=== PATIENT | male | born 1990 | race Caucasian/White ===

== ENCOUNTER 2016-11-20 19:23 | Emergency (ER) | payer BC, OTHER ==
[~2016-11-20] VITALS: Ht 182.9 cm; Wt 97.4 kg
[~2016-11-20 19:23] MED LIST: ESCI10TA17
[2016-11-20 19:25] VITALS: TEMP 36.9; Ht 182.9 cm; Wt 97.4 kg
[2016-11-20] MEDS ORDERED: MELA3TAB12 PO (20:08)
[2016-11-20] MEDS ORDERED: ACET-1256 PO (20:08)
[2016-11-20] MEDS ORDERED: ESCI1TAB10 PO (20:08)
[2016-11-20 20:11] LABS: BENZODIAZEPINE, URINE NEG (NEG); COCAINE,URINE NEG (NEG); PHENCYCLIDINE, URINE NEG (NEG)
[2016-11-20 20:16] LABS: MEAN CELL VOLUME 84.5 fL (80-100); MEAN CORPUSCULAR HEMOGLOBIN 31.2 pg (25-34); MEAN CORPUSCULAR HGB CONC 36.9 g/dl (32-36); MEAN PLATELET VOLUME 10.1 fL (7.4-10.4); PLATELET COUNT 262 K/uL (130-400); RED BLOOD COUNT 4.97 M/uL (4.7-6.1); WHITE BLOOD COUNT 9.08 K/uL (4.8-10.8)
--- NOTE | 2016-11-20 20:31 | DIAGNOSTIC IMAGING REPORT ---
CT OF THE HEAD WITHOUT CONTRAST CLINICAL HISTORY: Head injury. Anxiety. Depression. COMPARISON STUDY: Head CT August 01, 2008. CT DOSE: 537.48 mGy.cm TECHNIQUE: Helical axial images of the head were obtained without IV contrast. Automated exposure control was utilized for the study. FINDINGS: No acute intracranial hemorrhage, midline shift or mass effect is present. Brain volume is normal. Ventricular system is normal. The basilar cisterns are patent. No extra-axial collections are present. Campos-white differentiation is maintained. There are no findings to suggest acute dural sinus thrombosis or acute territorial infarct. There is extensive mucosal thickening of the right ethmoid sinuses. There are no calvarial fracture. Mastoid air cells are clear. IMPRESSION: 1. No acute intracranial findings. 2. Extensive right ethmoid sinus mucosal thickening. 3. No calvarial fracture. Electronically signed by: Capo Craig M.D. 11/20/2016 8:29 PM Dictated Date/Time: 11/20/2016 8:26 PM
[2016-11-20 20:38] LABS: ACETAMINOPHEN 2 ug/ml (10-30); BUN/CREATININE RATIO 15.3 (10-20); CREATININE 0.72 mg/dl (0.60-1.40); POTASSIUM 3.2 mmol/L (3.5-5.1)
[2016-11-20 20:49] LABS: THYROID STIMULATING HORMONE 2.96 uIu/ml (0.300-4.500)
[2016-11-20] MEDS ORDERED: ATIVAN 1MG HOMEPACK PO ONE (22:00)
[2016-11-20 22:16] VITALS: BP 130/77; PULSE 88; O2SAT 97
--- NOTE | 2016-11-21 00:52 | EMERGENCY ROOM VISIT NOTE ---
History Report prepared by Denisse: Davida Richard Under the Supervision of: Dr. Joseph Fajardo M.D. First contact with patient: 19:40 Chief Complaint: MENTAL HEALTH EVALUATION Stated Complaint: ANXIETY, DEPRESSION, SUICIDAL IDEATIONS History of Present Illness The patient is a 26 year old male who presents to the Emergency Room with complaints of persistent depression that has worsened over the last several hours. Per the patient's father, the patient has a history of depression and states that the patient takes 20 mg of Lexapro daily. He states that for the past three years, the patient has been involved in a relationship. The patient' s father states that the patient has been trying to make the relationship work, but the significant other does not want to. He states that the patient has been with his significant other since she gave , and has been a father to the child. The patient's father states that over the past two weeks the significant other has been saying it isn't going to work, but states that two hours ago the relationship has officially ended. The patient's father states that the patient has been experiencing stress, hyperventilation, and difficulty communicating effectively. The patient states that he wishes he could just go somewhere and start over again. He states that he has had suicidal ideations in the past, but has never attempted suicide in the past. The patient denies any homicidal ideation and states that he just wants to get away from everything. He states that he has a counselor that he has followed with for the past several years. The patient's father states that the patient hit his head on a door very hard this evening and states that his friend had to restrain the patient. The patient notes a headache today and states that he took Tylenol for his headache. He denies any neck pain. The patient's father denies the patient trying to overdose this evening and denies the patient having access to the firearms in their house. 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 The patient's father notes a strong family history of depression. The patient denies any suicidal ideation. Source of History: patient Onset: last several hours Position: other (global) Quality: other (depression) Timing: worsening, other (persistent) Associated Symptoms: + headache, No neck pain Note: Associated Symptoms: suicidal ideations, emotional issues, hyperventilation, difficulty communicating effectively. Review of Systems See HPI for pertinent positives & negatives. A total of 10 systems reviewed and were otherwise negative. Past Medical & Surgical Medical Problems: (1) Depression Family History Depression Social History Smoking Status: Never Smoker Alcohol Use: occasionally Marital Status: single Occupation Status: employed Current/Historical Medications Scheduled Acetaminophen (Tylenol), 1,000 MG PO PRN UD Escitalopram Oxalate (Lexapro), 20 MG PO HS Melatonin-Pyridoxine (Melatonin), 5 MG PO HS Allergies Coded Allergies: Codeine (Verified Allergy, Severe, HIVES, 11/20/16) Latex (Verified Allergy, Severe, HIVES, 11/20/16) Physical Exam Vital Signs Date Time Temp Pulse Resp B/P Pulse Ox O2 Delivery O2 Flow Rate FiO2 11/20/16 22:16 88 18 130/77 97 11/20/16 21:52 88 18 130/77 97 Room Air 11/20/16 19:25 36.9 93 22 136/92 98 Room Air Physical Exam Constitutional: Vital signs reviewed. Eyes: Pupils are equal round reactive to light. Conjunctiva are noninjected. ENT: Pharynx is clear without erythema or exudate. Mucous membranes are moist. Neck supple without meningeal signs. No midline tenderness to the cervical spine. Respiratory: Clear to auscultation bilaterally. Breath sounds are equal bilaterally. Cardiovascular: Regular rate and rhythm. No rubs or gallops. GI: Soft, nondistended and nontender. Bowel sounds are present. Musculoskeletal: No peripheral edema. No lower extremity tenderness. Integumentary: No cyanosis. Neurological: The patient is awake and alert. Cranial nerves II-XII are intact. Motor is 5 out of 5 all extremities. Sensation is intact to light touch all extremities. Normal speech. No pronator drift. Psychiatric: Depressed affect. Anxious. Medical Decision & Procedures ER Provider Diagnostic Interpretation: CT results as stated below per my review and radiologist interpretation. CT OF THE HEAD WITHOUT CONTRAST CLINICAL HISTORY: Head injury. Anxiety. Depression. COMPARISON STUDY: Head CT August 01, 2008. CT DOSE: 537.48 mGy.cm TECHNIQUE: Helical axial images of the head were obtained without IV contrast. Automated exposure control was utilized for the study. FINDINGS: No acute intracranial hemorrhage, midline shift or mass effect is present. Brain volume is normal. Ventricular system is normal. The basilar cisterns are patent. No extra-axial collections are present. Campos-white differentiation is maintained. There are no findings to suggest acute dural sinus thrombosis or acute territorial infarct. There is extensive mucosal thickening of the right ethmoid sinuses. There are no calvarial fracture. Mastoid air cells are clear. IMPRESSION: 1. No acute intracranial findings. 2. Extensive right ethmoid sinus mucosal thickening. 3. No calvarial fracture. Electronically signed by: Capo Craig M.D. 11/20/2016 8:29 PM Dictated Date/Time: 11/20/2016 8:26 PM Laboratory Results 11/20/16 20:05 11/20/16 20:05 Test 11/20/16 19:36 11/20/16 20:05 Urine Opiates Screen NEG (NEG) Urine Methadone, Qualitative NEG (NEG) Urine Barbiturates NEG (NEG) Urine Phencyclidine (PCP) Level NEG (NEG) Ur Amphetamine/Methamphetamine NEG (NEG) MDMA (Ecstasy) Screen NEG (NEG) Urine Benzodiazepines Screen NEG (NEG) Urine Cocaine Metabolite NEG (NEG) Urine Marijuana (THC) NEG (NEG) Red Blood Count 4.97 M/uL (4.7-6.1) Mean Corpuscular Volume 84.5 fL (80-100) Mean Corpuscular Hemoglobin 31.2 pg (25-34) Mean Corpuscular Hemoglobin Concent 36.9 g/dl (32-36) RDW Standard Deviation 37.6 fL (36.4-46.3) RDW Coefficient of Variation 12.3 % (11.5-14.5) Mean Platelet Volume 10.1 fL (7.4-10.4) Anion Gap 10.0 mmol/L (3-11) Est Creatinine Clear Calc Drug Dose 188.1 ml/min Estimated GFR () 149.2 Estimated GFR (Non- 128.7 BUN/Creatinine Ratio 15.3 (10-20) Calcium Level 9.0 mg/dl (8.5-10.1) Total Bilirubin 0.4 mg/dl (0.2-1) Direct Bilirubin 0.1 mg/dl (0-0.2) Aspartate Amino Transf (AST/SGOT) 19 U/L (15-37) Alanine Aminotransferase (ALT/SGPT) 25 U/L (12-78) Alkaline Phosphatase 85 U/L (45-117) Total Protein 7.0 gm/dl (6.4-8.2) Albumin 3.8 gm/dl (3.4-5.0) Thyroid Stimulating Hormone (TSH) 2.960 uIu/ml (0.300-4.500) Salicylates Level < 1.7 mg/dl (2.8-20) Acetaminophen Level 2 ug/ml (10-30) Ethyl Alcohol mg/dL < 3.0 mg/dl (0-3) Laboratory results as reviewed by me. Medications Administered Medications (Trade) Dose Ordered Sig/Jr Route Start Time Stop Time Status Last Admin Dose Admin Lorazepam (Ativan 1MG Home Pack) 1 homepack UD ONCE PO 11/20/16 22:00 11/20/16 22:01 DC 11/20/16 22:00 1 HOMEPACK ED Course 1940: The patient was evaluated in room A10. A complete history and physical exam was performed. 2148: I reevaluated the patient and he denies having any current sinus symptoms. He states that he was recently treated with antibiotics for a sinus infection. The patient states that he feels better and wants to go home. His father agrees that the patient is okay to go home and has no concern for his safety. The father states that he will conceal his firearms. The patient has an appointment with his therapist tomorrow. The psych porter sample case saw the patient and states that he had no criteria for a 302 commitment. 2199: Ordered Lorazepam 1 homepack PO. Medical Decision This is a 26-year-old male presents for mental health evaluation and head injury. I did perform a limited focused review of portions of the patient's old chart on the electronic medical record. The patient has had no recent pertinent visits to this hospital. I did evaluate the patient as noted above. The patient recently broke up with a significant other. He has been with this woman fourth approximate 3 years and has helped raise her child who is not his. Tonight he found out that she was breaking up with him and became extremely stressed and hit his head against a wall. He was brought in by his father for mental health evaluation. He does deny suicidal ideation and states that he wants to start over again but feels hopeless. I did order and review the patient's blood work as noted in the electronic medical record. I did order a CT of the head. I did review the images myself as well as the radiology report as described above. He has no acute intracranial abnormalities. There is some findings regarding his sinus but the patient says that he was recently on antibiotics and currently has no sinus symptoms other than a runny nose. He denies any facial pain or fever. I did have the mental health body builder talk with him. She stated that the patient did not wish to be admitted as an inpatient. There are no grounds for a 302. The father is comfortable taking him home and is not concerned that he will hurt himself. The patient denies any suicidal ideation. He states that he has a therapist and will see him tomorrow. The patient was therefore discharged with his father in good condition. He was he was given an Ativan home pack. Impression Primary Impression: Mood disorder Additional Impressions: Anxiety Head injury Scribe Attestation The scribe's documentation has been prepared under my direct and personally reviewed by me in its entirety. I confirm that the note above accurately reflects all work, treatment, procedures, and medical decision making performed by me. Departure Information Dispostion Home / Self-Care Referrals No Doctor, Assigned (PCP) Forms HOME CARE DOCUMENTATION FORM, IMPORTANT VISIT INFORMATION Patient Instructions ED Depression, ED Head Injury Closed, Lorazepam Oral tablet, My [facility] Additional Instructions You have been examined and treated today on an emergency basis only. This is not a substitute for, or an effort to provide, complete comprehensive medical care. It is impossible to recognize and treat all injuries or illnesses in a single emergency department visit. It is therefore important that you follow up closely with yourdocotr and your therapist per your appointment. Return for worsening symptoms or if you develop vomiting, numbness or weakness in the arms or legs, or any other concerning symptoms. Problem Qualifiers
[2016-12-20] MEDS ORDERED: FLUO20CA35 PO (07:42)
[2016-12-20] MEDS ORDERED: ZNTT/150 PO (07:42)
[2016-12-20] MEDS ORDERED: MELATAB2 PO (07:42)
[2016-12-20] MEDS ORDERED: PRD10 PO (07:42)
== END 2016-11-20 22:17 | disposition home or self-care (01) ==
LOC: C.EDB 19:24 → C.EDA 22:17
DX: F39 Unspecified mood [affective] disorder (principal); F41.9 Anxiety disorder, unspecified; S09.90XA Unspecified injury of head, initial encounter; F32.9 Major depressive disorder, single episode, unspecified; W22.8XXA Striking against or struck by other objects, initial encounter

== ENCOUNTER 2016-12-03 08:52 | Emergency (ER) | payer OTHER ==
[~2016-12-03] VITALS: Ht 182.9 cm; Wt 91.0 kg
[~2016-12-03 08:52] MED LIST changes: +ACET-1256 PO; -ESCI10TA17; +ESCI1TAB10 PO; +MELA3TAB12 PO
[2016-12-03 08:54] VITALS: TEMP 36.6; Ht 182.9 cm; Wt 91.0 kg
[2016-12-03] MEDS ORDERED: ONDANSETRON 8 MG/54 ML D5W IV STA (09:01)
[2016-12-03] MEDS ORDERED: KETOROLAC TROMETHAMINE 30 MG/ML VIAL IV STA (09:01)
[2016-12-03] MEDS ORDERED: SODIUM CHLORIDE 0.9% 1000ML 1,000 ML IV STA (09:01)
[2016-12-03] MEDS ORDERED: MoRPHine SULFATE 4 MG/ML 1 ML CARP\\VIAL IV STA (09:01)
[2016-12-03 09:12] LABS: BASO ABS # 0.07 K/uL (0-0.2); COMPLETE YES; EOS % 5.4 %; HEMATOCRIT 44.9 % (42-52); IG% 0.1 %; LYMPH % 35.7 %; LYMPH ABS # 2.45 K/uL (1.2-3.4); MEAN CELL VOLUME 85.4 fL (80-100); MEAN CORPUSCULAR HEMOGLOBIN 30.8 pg (25-34); MEAN CORPUSCULAR HGB CONC 36.1 g/dl (32-36); MEAN PLATELET VOLUME 10.1 fL (7.4-10.4); MONO % 8.7 %; NEUT % 49.1 %; PLATELET COUNT 253 K/uL (130-400); RED BLOOD COUNT 5.26 M/uL (4.7-6.1); WHITE BLOOD COUNT 6.86 K/uL (4.8-10.8)
[2016-12-03 09:30] LABS: BUN/CREATININE RATIO 14.1 (10-20); CALCIUM 9.2 mg/dl (8.5-10.1); CREATININE 0.9 mg/dl (0.60-1.40)
--- NOTE | 2016-12-03 09:30 | DIAGNOSTIC IMAGING REPORT ---
ABDOMEN AND PELVIS CT WITHOUT CONTRAST CT DOSE: 950.42 mGy.cm HISTORY: Flank pain L flank/L abd pain TECHNIQUE: Multiaxial CT images of the abdomen and pelvis were performed without contrast. COMPARISON STUDY: None. FINDINGS: Lung bases are clear. Liver spleen and pancreas appear unremarkable. Gallbladder is negative for distention. Right kidney demonstrates a 5 mm nonobstructing calcification at its mid aspect. There is no evidence for right-sided obstructing urinary tract calculus. There is mild left urinary tract hydroureteronephrosis. The secondary to a partially obstructing calculus distal left ureter measuring 2.5 mm. Bladder is midline. There are no contained calcifications. Bowel pattern throughout is nonobstructive. The appendix is considered unremarkable. Bowel pattern again is nonobstructive. IMPRESSION: 1. 2.5 mm partially obstructing calculus distal left ureter. 2. Mild left hydroureteronephrosis. 3. Nonobstructing right renal calcification. Electronically signed by: Oswaldo Brennan M.D. 12/03/2016 9:29 AM Dictated Date/Time: 12/03/2016 9:26 AM
[2016-12-03] MEDS ORDERED: LORA-741 PO (09:31)
[2016-12-03] MEDS ORDERED: FLUO10CA48 PO (09:31)
[2016-12-03 09:33] LABS: ALB/GLOB RATIO 1.1 (0.9-2)
[2016-12-03] MEDS: MoRPHine SULFATE 4 MG/ML 1 ML CARP\\VIAL IV PRN ×2 (09:38→10:05)
[2016-12-03] MEDS ORDERED: OXYC1TAB3 PO (09:49)
[2016-12-03] MEDS ORDERED: ONDA4TAB10 SL (09:49)
[2016-12-03] MEDS ORDERED: HYDROmorphone INJ 0.5 MG/0.5 ML SYR IV STA (10:17)
--- NOTE | 2016-12-03 10:53 | EMERGENCY ROOM VISIT NOTE ---
History First contact with patient: 08:57 Chief Complaint: KIDNEY STONE Stated Complaint: KIDNEY PAIN History of Present Illness The patient is a 26 year old male who presents to the Emergency Room with complaints of severe left flank and abdominal pain. The patient has also had nausea and multiple episodes of vomiting. His pain started around 8 AM this morning. He felt perfectly fine last night. He denies any recent constipation , diarrhea or urinary symptoms. He denies any history of GI conditions or kidney stones. He denies any recent infections, fevers or chills. The patient reports that the pain is sharp and constant. He denies any alleviating or aggravating factors for his pain. He currently rates his discomfort a 10 out of 10. Patient denies any chest pain or shortness of breath. Review of Systems HEENT: Denies dizziness, visual problems, hearing loss, tinnitus. Denies difficulty swallowing or oral lesions. PULMONARY: Denies cough, shortness of breath, sputum production or hemoptysis. CARDIOVASCULAR: Denies chest pain, palpitations, dyspnea on exertion, orthopnea or peripheral edema. GASTROINTESTINAL: Denies diarrhea or constipation, last the history of present illness. GENITOURINARY: Denies dysuria, frequency, urgency or nocturia. NEUROLOGIC: Denies history of epilepsy, CVA, TIA or chronic headaches. MUSCULOSKELETAL: Denies history of joint tenderness/swelling. SKIN: Denies rashes or lesions. PSYCHIATRIC: History of depression. ENDOCRINE: Denies history of diabetes or thyroid disorders. Past Medical/Surgical History Medical Problems: (1) Depression Family History Depression Social History Smoking Status: Never Smoker Alcohol Use: occasionally Marital Status: single Occupation Status: employed Current/Historical Medications Scheduled Fluoxetine (Prozac), Unknown Dose PO HS Ondasetron Odt (Zofran Odt), 4 MG SL Q6H Scheduled PRN Lorazepam (Ativan), Unknown Dose PO Q6H PRN for Anxiety Oxycodone Ir (Roxicodone Ir), 1-2 TAB PO Q4H PRN for Pain Allergies Coded Allergies: Codeine (Verified Allergy, Severe, HIVES, 12/03/16) Latex (Verified Allergy, Severe, HIVES, 12/03/16) Physical Exam Vital Signs Date Time Temp Pulse Resp B/P Pulse Ox O2 Delivery O2 Flow Rate FiO2 12/03/16 09:38 71 18 135/98 100 Room Air 12/03/16 08:54 36.6 89 20 146/108 99 Room Air Physical Exam CONSTITUTIONAL: Healthy and well nourished. Alert and oriented X 3 with positive affect. Appears in moderately severe discomfort from pain. HEENT: Normocephalic, atraumatic. Pupils equal, round and reactive. Ears and nares are clear. No scleral icterus or conjunctival injection/pallor. NECK: Full active range of motion without discomfort. RESPIRATORY: Clear to auscultation bilaterally with no wheezing, crackles, rhonchi or stridor. CARDIOVASCULAR: Regular rate and rhythm with no murmurs, rubs or gallops. GASTROINTESTINAL: Bowel sounds present in all quadrants. Patient has generalized left abdominal tenderness to palpation without rigidity, guarding or rebound. Negative CVA tenderness. MUSCULOSKELETAL: Full range of motion of all joints without discomfort. INTEGUMENTARY: No rash or other significant dermatologic conditions noted. HEMATOLOGIC: No ecchymosis or petechiae noted. NEUROLOGIC: No focal neurologic deficits noted. Medical Decision & Procedures ER Provider Diagnostic Interpretation: Noncontrast CT of the abdomen and pelvis shows a 2.5 mm distal left ureteral calculus with mild hydronephrosis. Radiologist report is as follows: ABDOMEN AND PELVIS CT WITHOUT CONTRAST CT DOSE: 950.42 mGy.cm HISTORY: Flank pain L flank/L abd pain TECHNIQUE: Multiaxial CT images of the abdomen and pelvis were performed without contrast. COMPARISON STUDY: None. FINDINGS: Lung bases are clear. Liver spleen and pancreas appear unremarkable. Gallbladder is negative for distention. Right kidney demonstrates a 5 mm nonobstructing calcification at its mid aspect. There is no evidence for right-sided obstructing urinary tract calculus. There is mild left urinary tract hydroureteronephrosis. The secondary to a partially obstructing calculus distal left ureter measuring 2.5 mm. Bladder is midline. There are no contained calcifications. Bowel pattern throughout is nonobstructive. The appendix is considered unremarkable. Bowel pattern again is nonobstructive. IMPRESSION: 1. 2.5 mm partially obstructing calculus distal left ureter. 2. Mild left hydroureteronephrosis. 3. Nonobstructing right renal calcification. Laboratory Results 12/03/16 09:02 Red Blood Count 5.26, Mean Corpuscular Volume 85.4, Mean Corpuscular Hemoglobin 30.8, Mean Corpuscular Hemoglobin Concent 36.1, Mean Platelet Volume 10.1, Neutrophils (%) (Auto) 49.1, Lymphocytes (%) (Auto) 35.7, Monocytes (%) (Auto) 8.7, Eosinophils (%) (Auto) 5.4, Basophils (%) (Auto) 1.0, Neutrophils # (Auto) 3.36, Lymphocytes # (Auto) 2.45, Monocytes # (Auto) 0.60, Eosinophils # (Auto) 0.37, Basophils # (Auto) 0.07 12/03/16 09:02 Test 12/03/16 09:02 White Blood Count 6.86 K/uL (4.8-10.8) Red Blood Count 5.26 M/uL (4.7-6.1) Hemoglobin 16.2 g/dL (14.0-18.0) Hematocrit 44.9 % (42-52) Mean Corpuscular Volume 85.4 fL (80-100) Mean Corpuscular Hemoglobin 30.8 pg (25-34) Mean Corpuscular Hemoglobin Concent 36.1 g/dl (32-36) Platelet Count 253 K/uL (130-400) Mean Platelet Volume 10.1 fL (7.4-10.4) Neutrophils (%) (Auto) 49.1 % Lymphocytes (%) (Auto) 35.7 % Monocytes (%) (Auto) 8.7 % Eosinophils (%) (Auto) 5.4 % Basophils (%) (Auto) 1.0 % Neutrophils # (Auto) 3.36 K/uL (1.4-6.5) Lymphocytes # (Auto) 2.45 K/uL (1.2-3.4) Monocytes # (Auto) 0.60 K/uL (0.11-0.59) Eosinophils # (Auto) 0.37 K/uL (0-0.5) Basophils # (Auto) 0.07 K/uL (0-0.2) RDW Standard Deviation 38.1 fL (36.4-46.3) RDW Coefficient of Variation 12.3 % (11.5-14.5) Immature Granulocyte % (Auto) 0.1 % Immature Granulocyte # (Auto) 0.01 K/uL (0.00-0.02) Anion Gap 10.0 mmol/L (3-11) Est Creatinine Clear Calc Drug Dose 136.5 ml/min Estimated GFR () 136.1 Estimated GFR (Non- 117.5 BUN/Creatinine Ratio 14.1 (10-20) Calcium Level 9.2 mg/dl (8.5-10.1) Total Bilirubin 0.7 mg/dl (0.2-1) Aspartate Amino Transf (AST/SGOT) 14 U/L (15-37) Alanine Aminotransferase (ALT/SGPT) 22 U/L (12-78) Alkaline Phosphatase 93 U/L (45-117) Total Protein 7.6 gm/dl (6.4-8.2) Albumin 4.0 gm/dl (3.4-5.0) Globulin 3.6 gm/dl (2.5-4.0) Albumin/Globulin Ratio 1.1 (0.9-2) Lipase 102 U/L (73-393) The above labs were reviewed and were grossly normal. Medications Administered Medications (Trade) Dose Ordered Sig/Jr Route Start Time Stop Time Status Last Admin Dose Admin Sodium Chloride (Nss 1000ml) 1,000 ml @ 999 mls/hr Q1H1M STAT IV 12/03/16 09:01 12/03/16 10:01 DC 12/03/16 09:08 999 MLS/HR Ketorolac Tromethamine (Toradol Inj) 30 mg NOW STAT IV 12/03/16 09:01 12/03/16 09:04 DC 12/03/16 09:11 30 MG Morphine Sulfate (MoRPHine SULFATE INJ) 4 mg NOW STAT IV 12/03/16 09:01 12/03/16 09:04 DC 12/03/16 09:08 4 MG Morphine Sulfate (MoRPHine SULFATE INJ) 4 mg Q30M PRN IV 12/03/16 09:15 12/17/16 09:14 12/03/16 10:05 4 MG Ondansetron HCl (Zofran 8mg Iv) 8 mg NOW STAT IV 12/03/16 09:01 12/03/16 09:04 DC 12/03/16 09:09 8 MG Procedure 1. IV hydration: The patient received a liter normal saline bolus 2. IV medications: The patient initially was administered morphine 4 mg, Toradol 30 mg and Zofran 4 mg IVP. The patient received an additional morphine 4 mg IVP after returning from CT, and another morphine 4 mg IVP prior to discharge ED Course Patient history and physical exam were performed. Nurse's notes were reviewed. Vital signs were reviewed. Blood pressure is 146/108. The patient is otherwise afebrile and not tachycardic. IV access was immediately established, and labs were drawn. The patient was hydrated with normal saline, and received IV medications as discussed in the previous Procedure section. Review of labs shows no significant abnormalities. Patient was unable to provide a urine sample. Noncontrast CT of the abdomen and pelvis shows a 2.5 mm distal left ureteral calculus with mild hydronephrosis. Upon reassessment, the patient was still having moderate discomfort. He was given additional IV morphine. Patient still had intermittent spikes of pain to a 9 out of 10. He was administered an additional morphine 4 mg mg IVP which provided excellent pain relief. The patient requested discharge home, rating his discomfort a 2 out of 10. A urine strainer was provided. The patient was instructed to increase fluid intake today. The patient was provided a prescription for OxyIR as needed for pain. No drinking or driving while taking OxyIR. He was instructed to return for uncontrollable pain, vomiting or developing fever. He was also encouraged to find a urologist for further follow-up and management. The patient was happy with plan of care, and discharged with his father. Medical Decision The patient presents to the emergency department with abrupt onset of left flank and abdominal pain. CT scan shows a 2.5 mm distal left ureteral calculus. I do not suspect a surgical abdomen. Laboratory studies are not suggestive of pancreatitis, cholecystitis or hepatitis. The patient was unable to provide a urine sample to rule out UTI. I do not feel that this is likely given the abrupt onset of symptoms. Impression Primary Impression: Ureteral calculus, left Additional Impression: Renal calculus, right Departure Information Prescriptions Ondasetron Odt (ZOFRAN ODT) 4 Mg Tab 4 MG SL Q6H for Nausea, #15 TAB Prov: Hemanth Dickey PA 12/03/16 Oxycodone Ir (Roxicodone Ir) 5 Mg Tab 1-2 TAB PO Q4H Y for Pain, #24 TAB For Initial Treatment Prov: Hemanth Dickey PA 12/03/16 Referrals No Doctor, Assigned (PCP) Patient Instructions [facility] Problem Qualifiers
[2016-12-03 11:05] VITALS: BP 127/65; PULSE 68; O2SAT 100
[2016-12-20] MEDS ORDERED: ZNTT/150 PO (07:42)
[2016-12-20] MEDS ORDERED: PRD10 PO (07:42)
[2016-12-20] MEDS ORDERED: MELATAB2 PO (07:42)
[2016-12-20] MEDS ORDERED: FLUO20CA35 PO (07:42)
== END 2016-12-03 11:05 | disposition home or self-care (01) ==
LOC: C.EDB 08:53
DX: N20.2 Calculus of kidney with calculus of ureter (principal); N13.2 Hydronephrosis with renal and ureteral calculous obstruction; F32.9 Major depressive disorder, single episode, unspecified; Z79.899 Other long term (current) drug therapy; Z88.5 Allergy status to narcotic agent; Z91.040 Latex allergy status

== ENCOUNTER → 2016-12-18 | Outpatient (CLI) | payer OTHER ==
[~2016-12-18] MED LIST changes: -ACET-1256 PO; -ESCI1TAB10 PO; +FLUO10CA48 PO; +FLUO20CA35 PO; +LORA-741 PO; -MELA3TAB12 PO; +MELATAB2 PO; +ONDA4TAB10 SL; +OXYC1TAB3 PO; +PRD10 PO; +ZNTT/150 PO
== END | disposition home or self-care (01) ==
LOC: C.LABSPEC 16:53
PROVIDERS: ATTEND Urology
DX: N20.0 Calculus of kidney (principal)

== ENCOUNTER → 2016-12-27 | Day surgery (SDC) | payer OTHER ==
[2016-12-20 07:42] VITALS: Ht 182.9 cm; Wt 94.5 kg
[~2016-12-27] VITALS: Ht 182.9 cm; Wt 94.5 kg
[~2016-12-27] MED LIST changes: -FLUO10CA48 PO; -LORA-741 PO; -ONDA4TAB10 SL; -OXYC1TAB3 PO
== END | disposition home or self-care (01) ==
LOC: EDSTATUS 08:30 → C.PAT 12:43
PROVIDERS: ATTEND Urology
DX: N20.0 Calculus of kidney (principal)